=== PATIENT | male | born 1970 | race Caucasian/White ===

== ENCOUNTER 2016-06-06 13:12 | Emergency (ER) | payer OTHER ==
[2016-06-06 13:31] VITALS: BP 134/84; PULSE 67; RESP 18; TEMP 98.6; O2SAT 97
--- NOTE | 2016-06-06 13:36 | UCPHY ---
H & P Patient Type: New Time Seen by Provider: 06/06/16 13:28 HPI/ROS: HPI: 46-year-old male presents to urgent care with chief concern left lower anterior sanchez pain 11/27 that onset on 05/28/2016 when he struck his lower sanchez with an unknown object. He does not know what the object was, or if it was at work or home. Reports discomfort of the left lower sanchez for which he has used ibuprofen and aspirin with some improvement. Ambulating with a limp. Denies other injury at time of incident. Denies weakness, numbness, or tingling of the lower extremity. Denies left hip, left knee, left ankle or foot pain. No recent weight loss or night sweats. No fever, chills, myalgias, nausea, vomiting. No redness, swelling, no calf pain, calf swelling, or calf tenderness. No recent long car or plane travel. No allergies. No significant past medical history. Takes no home medications. ROS:10 point review of systems is negative other than as stated in HPI (Jennifer Onofre) Past Medical/Surgical History: Denies (Jennifer Onofre) Physical Exam: Vital signs stable, reviewed by me General: Awake, alert, calm, cooperative. No acute distress. Head: Normalocephalic. Atraumatic. EENT: PERRLA. EOMI. No pallor or injection. Anicteric. No nystagmus. No injection. Neck: Supple, nontender. No lymphadenopathy. Full range of motion. Respiratory: Breathing unlabored. Breath sounds equal bilaterally and clear to auscultation. No adventitious sounds. CV: Chest nontender, atraumatic. Heart rate regular. No murmur, distal pulses 2+ bilaterally. Brisk cap refill all extremities. Neuro: Alert. Oriented x 3. Speech clear. Nonfocal cranial nerves throughout. Sensation intact all extremities. Skin: Skin warm, dry, intact. No rashes, abrasions, or lacerations. Skin turgor normal. Extremities: Full range of motion in all 4 extremities. Strength 5+ all extremities. Left hip, left knee, left ankle, left foot with full range of motion, nontender, no evidence of deformity, swelling, or ecchymosis. Left lower anterior sanchez with moderate discomfort to point palpation. Palpation of small, mobile mass present (Jennifer Onofre) Constitutional: Initial Vital Signs Temperature (C) 37.0 C 06/06/16 13:28 Heart Rate 67 06/06/16 13:28 Respiratory Rate 18 06/06/16 13:28 Blood Pressure 134/84 H 06/06/16 13:28 O2 Sat (%) 97 06/06/16 13:28 O2 Delivery Mode Room Air Allergies/Adverse Reactions: No Known Allergies Allergy (Verified 06/06/16 13:27) Home Medications: Medication Instructions Recorded Miscellaneous Medical Supply [NO 01/24/12 HOME MEDS] Medical Decision Making - Diagnostics Imaging: Tib/Fib xr negative for anything acute--final report pending at time this dictation (Jennifer Onofre) ED Course/Re-evaluation: Afebrile gentleman presents to urgent care with pain left lower anterior sanchez times 9 days. He is able to ambulate without a limp. Believes he struck his lower sanchez with an object but is not sure what he struck it with. (Jennifer Onofre ) Differential Diagnosis: Differential includes but is not limited to contusion, hematoma, fracture, dislocation, sanchez splint, mass (Jennifer Onofre) Other Provider: The patient was evaluated and managed by the nurse practitioner, Jennifer Onofre.. My co-signature indicates that I have reviewed this chart and I agree with the findings and plan of care as documented. I am the secondary supervising physician. (Eladia Golden) Departure - Departure Disposition: Home, Routine, Self-Care Clinical Impression: Pain in left sanchez Condition: Good Instructions: Musculoskeletal Pain (ED) Additional Instructions: Plan: Follow up with your primary care provider by the end of this week for recheck-- When you call to schedule appointment, please let the office know you are an " ER follow up" appointment", ok to see anyone in the office for recheck You may use 600 mg of ibuprofen every 6 hours for fever, inflammation, or pain. Always take ibuprofen with food and stay well hydrated while taking. Do not exceed the maximum allowable dose in a 24 hour period which is 2400 mg. ice every 1-2 hours for 20 minutes for the the next 2-3 days Use a cane to minimize weight-bearing on the affected leg such that you are not limping--let pain be your guide. If it hurts, don't do it. Activity as tolerated Referrals: Zack Wallace, DO [Primary Care Provider] - As per Instructions Stand Alone Forms: Work Limited Duty, Work Excuse - PQRS PQRS Measurement: Not applicable (Jennifer Onofre)
--- NOTE | 2016-06-06 15:27 | DX ---
LEFT TIBIA-FIBULA, 4 Views, 1:30 PM CLINICAL HISTORY: 46-year-old male who struck an object along the mid tibia-fibula on May 28, 2016 , with persistent pain and swelling. COMPARISON STUDY: None. FINDINGS: There is no acute fracture, dislocation, or radiopaque foreign body. There is no periostiti s, or lytic or blastic lesion. There is a posterior calcaneal enthesophyte present where the Achilles tendon inserts. There is no suprapatellar joint effusion, however, there is also an enthesophyte gamal ng the anterior superior patella where the quadriceps tendon inserts. IMPRESSION: There is no acute osseous abnormality or radiopaque foreign body.
== END 2016-06-06 14:11 | disposition home or self-care (01) ==
LOC: CED 13:12
DX: M79.662 Pain in left lower leg (principal)
CPT/HCPCS: 73590-PO; G0463-PO